=== PATIENT | male | born 1940 | race Caucasian/White ===

== ENCOUNTER → 2024-01-08 10:05 | Outpatient (REF) | payer OTHER, SELFPAY | LOC: RAD 10:05 | PROVIDERS: ATTENDING PHYSICIAN Family Medicine | DX: M15.9 Polyosteoarthritis, unspecified (principal) | CPT/HCPCS: 72110 ==

== ENCOUNTER 2024-02-27 14:38 | Inpatient (IN) | payer OTHER, SELFPAY ==
[2024-02-27] VITALS (11 sets, daily range): BP systolic 122–178; BP diastolic 38–93; BMI 26.9; BMI 27.2
[2024-02-27 09:26] LABS: Glucose - Point of Care 151 mg/dl (70-99)
--- NOTE | 2024-02-27 09:40 | ED.GENMED ---
History of Present Illness
<Chano Aj PA-C - Last Filed: 02/27/24 13:55>
General
Chief Complaint: Weakness
Source: patient
Exam Limitations: none
Time Seen by Provider: 02/27/24 09:20
Travel History
Have you had any contact with someone who has COVID-19?: No
Do you have any symptoms of coronavirus? Fever > 100 degrees, chills, cough, shortness of breath, sore throat, loss of taste or smell, muscle aches, or headache?: No
History of Present Illness
History of Present Illness:
84-year-old male presents via EMS from home with generalized weakness. He has been coughing over the past 2 to 3 days. He denies measurable fever. He states he felt very hot today. Upon EMS arrival he was found to be diaphoretic and bradycardic.
They gave 1 mg of atropine. Patient denies abdominal pain chest pain or shortness of breath. No known sick contacts. History of hypertension. No other complaints at this time
Past History
<Chano Aj PA-C - Last Filed: 02/27/24 13:55>
Past History
ED Past Medical History: HTN
ED Past Surgical History: Other (Hernia repair)
Social History
Tobacco: Non-smoker
Alcohol: None
Drug: None
Phy Exam
<Chano Aj PA-C - Last Filed: 02/27/24 13:55>
Physical Exam
Physical Exam:
General: Well-appearing male no acute respiratory distress
HEENT: Normocephalic atraumatic mucosa dry neck is supple
Heart: Regular rate and rhythm no murmurs
Lungs: Clear no wheeze or rales
Abdomen is soft nontender nondistended no guarding or rebound normal bowel sounds
Extremities: No cyanosis or edema
Skin: Warm no rash
Course
<Chano Aj PA-C - Last Filed: 02/27/24 13:55>
Orders/Labs/Results
Orders:
Orders
02/27/24 09:18
EKG [Electrocardiogram (*1)] Urgent
Reason for Study: Bradycardia / Tachycardia
EKG- Treatment ONCE
02/27/24 09:36
0.9% Sodium Chloride 1000 ml [Nss] 1,000 ml IV BOLUS
02/27/24 09:37
CR Chest - 2 Views Urgent
Comment:
Reason For Exam: cough, weakness
02/27/24 09:44
COVID-19 Antigen Urgent
Source: Nasal Swab
Complete Blood Count/With Diff Urgent
Comprehensive Metabolic Panel Urgent
Lactic Acid Q4H
Comment: CANCEL 2nd LACTIC ACID IF 1st LACTIC ACID IS LESS THAN 2
Lipase Urgent
Comment: ADD ON
TSH Reflex To Free T4 Urgent
Comment: ADD ON
Influenza A+B Rapid Molecular Urgent
BERENICE Source: Nasal Swab
Specimen Description:
02/27/24 09:55
Blood Culture Q30M
BERENICE Source: Blood/Venous
Specimen Description:
02/27/24 10:09
Blood Culture Q30M
BERENICE Source: Blood/Venous
Specimen Description:
02/27/24 11:12
Add On- LAB Urgent
Tests Added?: tsh, reflex to free t4
02/27/24 11:25
CT Abd/pelvis W Iv Cont Urgent
Comment:
Reason For Exam: abdominal pain, vomiting
Ondansetron Injectable [Zofran] 4 mg IV NOW STA
02/27/24 11:42
Electrocardiogram (*1) Urgent
Reason for Study: Other
Other Reason for Exam: physician order
EKG- Treatment ONCE
02/27/24 11:43
Add On- LAB Urgent
Tests Added?: lipase
02/27/24 11:46
Urinalysis Reflex To Culture Urgent
Date Specimen was Collected: 02/27/24
Time Specimen was Collected: 09:50
02/27/24 13:18
Echo 2D MMode Color/Doppler Routine
Reason for Study: bradycardia
02/27/24 13:45
Lactic Acid Q4H
Comment: CANCEL 2nd LACTIC ACID IF 1st LACTIC ACID IS LESS THAN 2
02/27/24 13:46
Tucker Placement- Treatment ONCE
Reason for insertion: Acute Retention
Abnormal Lab Results
02/27/24 02/27/24
09: 09:44
RBC 3.62 L 10^6/uL
(4.70-6.10)
Hgb 11.6 L g/dL
(13.0-18.0)
Hct 33.2 L %
(39.0-52.0)
MCH 32.0 H pg
(27.0-31.0)
RDW 23.3 H %
(11.5-14.5)
MPV 11.8 H fL
(7.4-10.4)
Abs Immat Gran (auto) 0.1 H 10^3/uL
(0-0.05)
Immature Gran % 1.4 H %
(0-0.5)
Glucose 147 H mg/dl
(70-99)
POC Glucose 151 H mg/dl
(70-99)
02/27/24 09:44
02/27/24 09:44
Vital Signs
Initial and Last Documented VS:
Initial Vital Signs
Pulse Resp BP Pulse Ox
59 16 143/57 92
02/27/24 09:15 02/27/24 09:15 02/27/24 09:15 02/27/24 09:15
Last Documented Vital Signs
Temp Pulse Resp BP Pulse Ox
95.6 F L 62 22 168/93 93
02/27/24 09:38 02/27/24 13:15 02/27/24 13:15 02/27/24 13:00 02/27/24 13:15
<Srikanth Antony MD - Last Filed: 02/27/24 13:44>
Orders/Labs/Results
Orders:
Orders
02/27/24 09:18
EKG [Electrocardiogram (*1)] Urgent
Reason for Study: Bradycardia / Tachycardia
EKG- Treatment ONCE
02/27/24 09:36
0.9% Sodium Chloride 1000 ml [Nss] 1,000 ml IV BOLUS
02/27/24 09:37
CR Chest - 2 Views Urgent
Comment:
Reason For Exam: cough, weakness
02/27/24 09:44
COVID-19 Antigen Urgent
Source: Nasal Swab
Complete Blood Count/With Diff Urgent
Comprehensive Metabolic Panel Urgent
Lactic Acid Q4H
Comment: CANCEL 2nd LACTIC ACID IF 1st LACTIC ACID IS LESS THAN 2
Lipase Urgent
Comment: ADD ON
TSH Reflex To Free T4 Urgent
Comment: ADD ON
Influenza A+B Rapid Molecular Urgent
BERENICE Source: Nasal Swab
Specimen Description:
02/27/24 09:55
Blood Culture Q30M
BERENICE Source: Blood/Venous
Specimen Description:
02/27/24 10:09
Blood Culture Q30M
BERENICE Source: Blood/Venous
Specimen Description:
02/27/24 11:12
Add On- LAB Urgent
Tests Added?: tsh, reflex to free t4
02/27/24 11:25
CT Abd/pelvis W Iv Cont Urgent
Comment:
Reason For Exam: abdominal pain, vomiting
Ondansetron Injectable [Zofran] 4 mg IV NOW STA
02/27/24 11:42
Electrocardiogram (*1) Urgent
Reason for Study: Other
Other Reason for Exam: physician order
EKG- Treatment ONCE
02/27/24 11:43
Add On- LAB Urgent
Tests Added?: lipase
02/27/24 11:46
Urinalysis Reflex To Culture Urgent
Date Specimen was Collected: 02/27/24
Time Specimen was Collected: 09:50
02/27/24 13:18
Echo 2D MMode Color/Doppler Routine
Reason for Study: bradycardia
02/27/24 13:45
Lactic Acid Q4H
Comment: CANCEL 2nd LACTIC ACID IF 1st LACTIC ACID IS LESS THAN 2
02/27/24 13:46
Tucker Placement- Treatment ONCE
Reason for insertion: Acute Retention
Abnormal Lab Results
02/27/24 02/27/24
09:44
RBC 3.62 L 10^6/uL
(4.70-6.10)
Hgb 11.6 L g/dL
(13.0-18.0)
Hct 33.2 L %
(39.0-52.0)
MCH 32.0 H pg
(27.0-31.0)
RDW 23.3 H %
(11.5-14.5)
MPV 11.8 H fL
(7.4-10.4)
Abs Immat Gran (auto) 0.1 H 10^3/uL
(0-0.05)
Immature Gran % 1.4 H %
(0-0.5)
Glucose 147 H mg/dl
(70-99)
POC Glucose 151 H mg/dl
(70-99)
02/27/24 09:44
02/27/24 09:44
Vital Signs
Initial and Last Documented VS:
Initial Vital Signs
Pulse Resp BP Pulse Ox
59 16 143/57 92
02/27/24 09:15 02/27/24 09:15 02/27/24 09:15 02/27/24 09:15
Last Documented Vital Signs
Temp Pulse Resp BP Pulse Ox
95.6 F L 62 22 168/93 93
02/27/24 09:38 02/27/24 13:15 02/27/24 13:15 02/27/24 13:00 02/27/24 13:15
<Chano Aj PA-C - Last Filed: 02/27/24 13:55>
MDM/Problems Addressed
Differential Diagnosis Includes:
Weakness. Not bradycardic upon arrival here. Looks dry on exam. Rectal temp 95.7. Septic workup initiated with cultures of the blood and urine chest x-ray COVID flu lactic acid. Fluids ordered.
<Chano Aj PA-C - Last Filed: 02/27/24 13:55>
*Critical Care Note
Total Time (30-74mins, 75-104mins- exclusive of procedures): Not Applicable
<Chano Aj PA-C - Last Filed: 02/27/24 13:55>
Update Note
Update Note:
Reevaluated multiple times now with increased abdominal pain. Patient's abdomen is somewhat distended. He is tender to the touch. He was vomiting upon my reassessment. Will give Zofran for nausea and CT of the abdomen. CT was reviewed and
demonstrates distended bladder but no other acute pathology. No sign of bowel obstruction. Patient was bradycardic earlier with diaphoresis and hypothermic now requiring urinary catheter secondary to urinary retention, will keep in hospital with
cultures pending.
ED Attending Note
<Chano Aj PA-C - Last Filed: 02/27/24 13:55>
-
Portions of this chart may have been created with voice recognition software.� Occasional wrong word or��sound alike� substitutions may have occurred due to the inherent limitations of voice recognition software.
<Srikanth Antony MD - Last Filed: 02/27/24 13:44>
ED Attending Note
Patient seen and examined by attending physician: Yes
I performed the substantive portion of visit, reviewed & personally made and approve the management plan that is documented in note by myself or LOYD.: Yes
ED Attending Note:
84-year-old male with mild URI-like symptoms over the last week. However this morning severe diaphoresis nausea lightheadedness. Has currently developed abdominal pain. Abdominal pain did not start till the ER. No chest pain or unusual shortness
of breath. Patient was given atropine prehospital for bradycardia/hypotension
History of hypertension hypercholesterolemia small bowel obstruction appendectomy hernia repair as a child.
On exam patient is nontoxic. Currently holding a vomit bag. Alert and oriented. Minimally pale. Warm and dry. Blood pressure actually mildly elevated. Heart rate normal.
Lungs clear and equal. Heart regular rate and rhythm no murmur. Abdomen distended soft diffuse tenderness mostly in the lower quadrants. Small periumbilical hernia easily reducible. Old scar right lower quadrant.
Warm and dry perfusing well. Good distal pulses and color. No pulsatile mass noted.
Impression severe bradycardia requiring atropine now with abdominal pain and nausea. We will repeat his EKG I question a heart block although blood pressure is stable. CT scan of the abdomen for abdominal pain. Warrants admission.
Patient seen by cardiology. Appears to be in normal sinus rhythm with junctional component. Abdominal CT is negative except for bladder distention. This may be the cause of his pain. Will need a Tucker catheter.
Discharge Plan
Departure
Patient Disposition: Home (Routine Discharge)
Date of Disposition: 02/27/24
Time of Disposition: 13:54
Admit to: Telemetry
Patient with high blood pressure during this ER visit?: No
Discharge Problem:
Hypothermia, Bradycardia, Acute urinary retention
Prescriptions:
No Action
multivitamin Tablet
1 tab PO DAILY
lecithin 518 mg Capsule
518 mg PO DAILY Qty: 0
Hold Instructions: Resume on 10/02/22.
doxazosin 4 mg Tablet
4 mg PO HS
finasteride 5 mg Tablet
5 mg PO DAILY
glucosamine-chondroitin [Osteo Bi-Flex] 250-200 mg Tablet
1 tab PO DAILY Qty: 0
Hold Instructions: Resume on 10/02/22.
magnesium oxide 400 mg magnesium Capsule
400 mg PO DAILY Qty: 0
Nerve Renew
1 tab PO BID
famotidine [Pepcid] 20 mg tablet
20 mg PO HS Qty: 14 0RF
amlodipine 5 mg Tablet
5 mg PO HS Qty: 1 0RF
lisinopril 10 mg Tablet
10 mg PO DAILY Qty: 1 0RF
acetaminophen [Tylenol] 325 mg Tablet
325 mg PO DAILY
naproxen sodium [Aleve] 220 mg Tablet
220 mg PO BIDPRN PRN (Reason: back pains)
Referrals:
Phoenix Chang MD [Family Provider] -
Interventions
Interventions:
*Risk Screen - Suicide Last Done: 02/27/24 09:15
*General Assessment Last Done: 02/27/24 09:15
*Neglect/Abuse Screening Last Done: 02/27/24 09:15
ED- Fall Risk Assessment Last Done: 02/27/24 09:34
*ED COVID-19 Vaccine History Last Done: 02/27/24 09:27
ED- Cardiac Assessment Last Done: 02/27/24 10:50
ED- Pulmonary Assessment Last Done: 02/27/24 10:50
Discharge Date and Time
Print Language: GERMAN
[2024-02-27 09:56] LABS: % Basophils 0.6 % (0-2); % Eosinophils 1.4 % (0-6); % Immature Granulocytes 1.4 % (0-0.5); % Lymphocytes 22.4 % (20.5-51.1); % Monocytes 9.1 % (1.7-9.3); % Neutrophils 65.1 % (42.2-75.2); Absolute Eosinophils 0.1 10^3/uL (0-0.7); Absolute Immature Granulocytes 0.1 10^3/uL (0-0.05); Absolute Lymphocytes 1.6 10^3/uL (1.2-3.4); Absolute Monocytes 0.6 10^3/uL (0.1-0.6); Absolute Neutrophils 4.6 10^3/uL (1.4-6.5); Hematocrit 33.2 % (39.0-52.0); Hemoglobin 11.6 g/dL (13.0-18.0); Mean Corp Hgb Conc. 34.9 g/dL (33.0-37.0); Mean Corpuscular Volume 91.7 fL (80.0-94.0); Mean Platelet Volume 11.8 fL (7.4-10.4); Nucleated Red Blood Cells % 0 % (-); Platelet Count 162 10^3/uL (130-400); Red Blood Cell Count 3.62 10^6/uL (4.70-6.10); Red Cell Dist. Width 23.3 % (11.5-14.5)
[2024-02-27] MEDS: NSS 1000 IV (09:59)
[2024-02-27 10:10] LABS: COVID-19 Antigen Negative (Negative); Lactic Acid 1.2 mmol/L (0.7-2.0)
[2024-02-27 10:12] LABS: ALT (SGPT) 38 U/L (0-50); AST (SGOT) 39 U/L (17-59); Albumin 4.4 g/dl (3.5-5.0); Alkaline Phosphatase 76 U/L (38-126); Blood Urea Nitrogen 18 mg/dl (9-20); Calcium 8.8 mg/dl (8.4-10.2); Carbon Dioxide 24 mmol/L (22-30); Chloride 105 mmol/L (98-107); Estimated Creatinine Clearance 74 ml/min; Glucose 147 mg/dl (70-99); Potassium 3.9 mmol/L (3.5-5.1); Sodium 136 mmol/L (135-145); Total Bilirubin 1.2 mg/dl (0.2-1.3); Total Protein 7.1 g/dl (6.3-8.2); eGFR > 60.00
[2024-02-27 10:49] LABS: Anisocytosis 1+; Normal RBC Morphology No; Target Cells Slight
[2024-02-27] MEDS: ZOFRAN 4 MG IV (11:41)
[2024-02-27 12:07] LABS: Urine Albumin Negative (Neg - Trace); Urine Bilirubin Negative (Negative); Urine Character Clear (Clear); Urine Color Yellow; Urine Glucose Negative (Negative); Urine Ketone Negative (Negative); Urine Leukocyte Negative (Negative); Urine Nitrite Negative (Negative); Urine Occult Blood Negative (Negative); Urine Specific Gravity 1.015 (<1.030); Urine Urobilinogen Negative (Neg - 1+)
--- NOTE | 2024-02-27 12:07 | CON.CAR ---
Addendum entered and electronically signed by Ge Nieves MD 02/27/24 16:33:
I saw and examined the patient.
The TECHNOLOGY ARCHITECT's note was reviewed and I agree with the note.
Comment: 84M with bradycardia. EKG shows SR with competing junctional. He has had diaphoresis and abdominal pain
- tele
- echo
- HR seems a reaction to his symptoms and not cause, but time, tele, and echo will be helpful
Original Note:
Consultation
Consultation Request
Date/Time Consultation Requested: 02/27/24 1204
Date/Time Consultation Performed: 02/27/24 1220
Requesting Provider: Dr. Antony
Performing Provider: Marielena CEBALLOS for Dr. Nieves
Reason for Consultation: abnormal EKG, bradycardia
Medical History
-
Chief Complaint: weakness
History of Present Illness:
84 y/o male with hypertension, peripheral neuropathy, chronic back pain, and BPH who is here for evaluation of waking up this AM around 7AM feeling hot and sweaty and with dizziness and weakness. He got up to go to the bathroom, then went back into
bed since it did not get better. Lasted about 1/2 hour. EMS reported that his HR was 46 with BP elevated at that time in 170's. He was given 1 mg atropine for suspected symptomatic bradycardia. He was also given IV fluids. I reviewed available
strips and I see HR as low as 50 BPM, but no severe bradycardia. EKG reveals sinus rhythm with competing junctional rhythm. He has developed abdominal pain, nausea, and vomiting as well and abdominal CT is pending. Blood cultures are pending.
Past Medical History
Past Medical History: HTN and Other (peripheral neuropathy, chronic back pain, BPH)
Social History
Tobacco: Non-Smoker
Alcohol: Occasional
Family History
Family History: Reviewed & Not Pertinent
Allergies / Home Medications
Allergy/AdvReac Type Severity Reaction Status Date / Time
No Known Allergies Allergy Verified 02/27/24 09:19
�Medication �Instructions �Recorded �Confirmed �Type
Nerve Renew 1 tab PO BID 08/15/22 02/27/24 History
doxazosin 4 mg tablet 4 mg PO HS 08/15/22 02/27/24 History
finasteride 5 mg tablet 5 mg PO DAILY 08/15/22 02/27/24 History
glucosamine-chondroitin 250 mg-200 1 tab PO DAILY ##0 08/15/22 02/27/24 History
mg tablet (Osteo Bi-Flex)
lecithin 518 mg capsule 518 mg PO DAILY ##0 08/15/22 02/27/24 History
magnesium oxide 400 mg PO DAILY ##0 08/15/22 02/27/24 History
multivitamin 1 tab PO DAILY 08/15/22 02/27/24 History
famotidine 20 mg tablet (Pepcid) 20 mg PO HS #14 tabs 08/16/22 02/27/24 Rx
amlodipine 5 mg tablet 5 mg PO HS #1 tab 09/25/22 02/27/24 Rx
lisinopril 10 mg tablet 10 mg PO DAILY #1 tab 09/25/22 02/27/24 Rx
acetaminophen 325 mg tablet 325 mg PO DAILY 02/27/24 02/27/24 History
(Tylenol)
naproxen sodium 220 mg tablet 220 mg PO BIDPRN PRN back pains 02/27/24 02/27/24 History
(Aleve)
Review of Systems
-
History Source: Patient
All other systems: Negative unless noted
Constitutional: Other (weakness)
Cardiac: Diaphoresis
Abdomen/GI: Abdominal Pain, Nausea and Vomiting
Neurological: Dizzy
Physical Exam
Vital Signs
Temp Pulse Resp BP Pulse Ox
95.6 F L 62 17 178/88 90
02/27/24 09:38 02/27/24 11:45 02/27/24 11:45 02/27/24 11:39 02/27/24 11:45
Lab Results
02/27/24 09:44
02/27/24 09:44
Physical Exam
General: Well Developed and No Apparent Distress
HEENT: Normocephalic and Anicteric
Respiratory: Clear and Non Labored Respirations
Cardiac: Regular Rhythm
GI: Tender and Distended
Musculoskeletal: No Edema
Skin: Warm and Dry
Neuro: AO x 3
Psych: Calm
Impression / Plan
-
Weakness, diaphoresis, dizziness:
-resolved
-fluids given
-blood cultures pending
-follow telemetry
-check echo
Bradycardia, abnormal EKG:
-SR with competing junctional rhythm noted by EKG and telemetry
-not on any AV-tay agents- avoid
-TSH pending
-may be related to abdominal issues- awaiting work-up
-echo
Abdominal symptoms:
-pain, nausea
-CT scan is pending
HTN:
-elevated in ED
-on CCB and ACEI- monitor
Data Reviewed
-
EKG: Tracing Personally Visualized and interpreted (sinus rhythm with competing junctional rhythm )
Radiology: Report Reviewed by me (CXR: No active cardiopulmonary disease.)
Medical Tests (Nuc Med, Echo etc): Report Reviewed by me (echo 06/11/23: LV ejection fraction is 60-65%.Mild aortic regurgitation. Mild tricuspid regurgitation.)
Labs: Labs Reviewed by me
[2024-02-27 12:34] LABS: TSH Reflex To Free T4 1.61 uIU/ml (0.47-4.68)
[2024-02-27 12:42] LABS: Lipase 87 U/L (23-300)
--- NOTE | 2024-02-27 13:55 | HPS.HSE ---
Family Physician
-
Family Physician: Phoenix Chang
Chief Complaint
-
generalized weakness
dizzy
History of Present Illness
84 y/o male with hypertension, peripheral neuropathy, chronic back pain, and BPH woke up sweaty, hot,dizzy and weak. he voided little bit but went back to bed as he felt very weak and dizzy. reported, he was having cough, congestion for past
one week. checked his temperature and it was normal. she called 911. EMS reported that his HR was 46 with BP elevated at that time in 170's. He was given 1 mg atropine for suspected symptomatic bradycardia. He was also given IV fluids. patient
was noted to have abdominal pain in ER. he noted distended abdominal pain. denied dysuria or hematuria. denied fever, chills, chest pain, sob.denied ZABALA. denied n/v/d.
Medical History
Past Medical History
Past Medical History: Reports Other
Additional Past Medical History:
1. Osteoarthritis.
2. Hypertension.
3. Hypercholesterolemia.
4. PACs, asymptomatic.
5. Chronic dyspnea on exertion.
6. Documented chronic kidney disease stage 3.
7. Small bowel obstruction 10/2016.
8. Nephrolithiasis.
9. Fatty liver disease.
10. Spinal stenosis.
11. Peripheral polyneuropathy.
12. BPH.
13. Basal cell carcinoma, status post excision.
14. Anemia of chronic disease.
15. Right cataract with vision loss.
16. Anxiety.
Past Surgical History: Reports Other
Additional Past Surgical History:
1. Right wrist fracture repair.
2. Bilateral carpal tunnel release.
3. Left inguinal hernia repair x2.
4. Right inguinal hernia repair.
5. Appendectomy.
6. Tonsillectomy and adenoidectomy.
7. Left cataract extraction.
8. Multiple colonoscopies.
9. Prostatic biopsy x3.
Social History
Tobacco: Non-smoker
Alcohol: None
Drug: None
Personal:
Living: With Family
Family History
Family History: Not pertinent
Allergies / Home Medications
Allergies reflects when Allergies were last updated in [facility].
Home Medications with original date entered in [facility]
Allergy/Medication List:
Allergies
Allergy/AdvReac Type Severity Reaction Status Date / Time
No Known Allergies Allergy Verified 02/27/24 09:19
Home Medications
Nerve Renew 1 tab PO BID 08/15/22
doxazosin 4 mg tablet 4 mg PO HS 08/15/22
finasteride 5 mg tablet 5 mg PO DAILY 08/15/22
glucosamine-chondroitin 250 mg-200 mg tablet (Osteo Bi-Flex) 1 tab PO DAILY ##0 08/15/22
lecithin 518 mg capsule 518 mg PO DAILY ##0 08/15/22
magnesium oxide 400 mg PO DAILY ##0 08/15/22
multivitamin 1 tab PO DAILY 08/15/22
famotidine 20 mg tablet (Pepcid) 20 mg PO HS #14 tabs 08/16/22
amlodipine 5 mg tablet 5 mg PO HS #1 tab 09/25/22
lisinopril 10 mg tablet 10 mg PO DAILY #1 tab 09/25/22
acetaminophen 325 mg tablet (Tylenol) 325 mg PO DAILY 02/27/24
naproxen sodium 220 mg tablet (Aleve) 220 mg PO BIDPRN PRN back pains 02/27/24
Review of Systems
-
Constitutional: Reports Fatigue
EENT: Reports No Symptoms
Respiratory: Reports Cough
Cardiac: Reports No Symptoms
Abdomen/GI: Reports No Symptoms and Abdominal Pain
: Reports No Symptoms
Musculoskeletal: Reports No Symptoms
Skin: Reports No Symptoms
Neurological: Reports No Symptoms
Endocrine: Reports No Symptoms
Hematologic/Lymphatic: Reports No Symptoms
Psych: Reports No Symptoms
Physical Exam
Vital Signs
Vital Signs
Temp Pulse Resp BP Pulse Ox
95.6 F L 62 22 168/93 93
02/27/24 09:38 02/27/24 13:15 02/27/24 13:15 02/27/24 13:00 02/27/24 13:15
Physical Exam
General: Well Developed, Well Nourished and No Apparent Distress
HEENT: NormoCephalic, Moist mucous membranes and Atraumatic
Respiratory: Clear
Cardiac: S1/S2 and Regular Rhythm; No Murmur or Rub
GI: Soft, Non Tender, Normal Bowel Sounds and Distended; No Organomegaly
Rectal: Deferred by Provider
Musculoskeletal: No Clubbing, No Cyanosis and No Edema
Skin: No Rash
Neuro: AO x 3 and Nonfocal/grossly intact
Psych: Calm
Laboratory Results
-
02/27/24 09:44
02/27/24 09:44
Laboratory Results
Lactic Acid 1.2 mmol/L (0.7-2.0) 02/27/24 09:44
Total Bilirubin 1.2 mg/dl (0.2-1.3) 02/27/24 09:44
AST 39 U/L (17-59) 02/27/24 09:44
ALT 38 U/L (0-50) 02/27/24 09:44
Alkaline Phosphatase 76 U/L (38-126) 02/27/24 09:44
Lipase 87 U/L (23-300) 02/27/24 09:44
Data Reviewed
-
Diagnostic Radiology: Report Reviewed by me
CT Scan: Report Reviewed by me
Lab Data: Labs Reviewed by me
Impression/Plan
-
# # Weakness/hypothermic unclear cause
-Temperature 95.7
-CT with here is no evidence of acute pathology in the abdomen or pelvis.There is 3 cm umbilical hernia which contains a knuckle of small bowel without associated obstruction or strangulation.Prostatomegaly.Left inguinal hernia repair.Multilevel
degenerative disc disease.Hepatic and left renal cysts.Atherosclerosis.Imaging for bowel pathology is limited by the lack of enteric contrast. If there is clinical suspicion for bowel pathology, the study be repeated with enteric contra
-Tucker placed by ER
-Chest x-ray clear
-Blood cultures pending
-UA negative
-COVID-negative, flu negative
-pt/ot consult
-Colette joseer ordered
# Cough/congestion likely viral
-COVID-negative
-Flu negative
-Chest x-ray clear
-Will obtain RSV
-Continue to monitor
# Bladder distention/history of BPH
-Cardura and finasteride continued
-Tucker ordered in ER
# Bradycardia unclear cause likely from abdominal pain
-Improved after atropine
-EKG with sinus rhythm with competing junctional rhythm
-TSH pending
-Echo
-TREND TROP
-Cardiology following
# Anemia likely chronic
-Hemoglobin 11.6
-No active bleeding
-Continue to monitor
# Hypertension
-Blood pressure elevated in ER
-Norvasc and lisinopril continued
# GERD
-Pepcid continued
# DVT prophylaxis
-Lovenox subcu
# CODE STATUS
-Full code
[2024-02-27 18:30] LABS: Troponin I < 0.012 ng/ml
[2024-02-27] MEDS: LOVENOX 40 MG SC (19:41)
--- NOTE | 2024-02-27 20:20 | W.PN.UPDATE ---
Update Note
Progress Note Update
This note serves as an addendum to the H&P by LIN Reich on February 27, 2024.
84 y/o male with past medical history of hypertension, peripheral neuropathy, chronic back pain, and BPH woke up sweaty, hot, dizzy and weak. Patient's , who was in patient's room at the time of admission, reported that patient was having cough
and congestion for the past one week. EMS reported that his heart rate was 46 beats per minute with blood pressure elevated at that time with systolic blood pressure in the 170s mmHg. He was given 1 mg atropine for suspected symptomatic bradycardia.
He was also given IV fluids. patient was noted to have abdominal pain in ER, later after imaging thought to be from urinary retention.
Vital signs noted with hypothermia down to 95.6 F. HR and remaining vital signs okay.
Physical Exam
General: Not in acute distress.
HEENT: Normocephalic, Moist mucous membranes and Atraumatic
Respiratory: Clear
Cardiac: S1/S2 and Regular Rhythm; No Murmur or Rub
GI: Soft, Non Tender, Normal Bowel Sounds and Distended
Musculoskeletal: No Cyanosis and No Edema
Skin: Warm. Dry.
Neuro: AAO x 3 and Nonfocal/grossly intact
Psych: Calm
Assessment/Plan
#Weakness, diaphoresis, dizziness
#Hypothermia
-Temperature 95.7
-Tucker placed by ER
-Chest x-ray clear
-Blood cultures pending
-UA negative
-Check CT Head
-Check TSH, AM cortisol
-Dietary consult
-COVID-negative, flu negative
-pt/ot consult
-Colette delbert ordered
# Bradycardia unclear cause likely from abdominal pain
-Could be related to hypothermia
-Improved after atropine
-EKG with sinus rhythm with competing junctional rhythm
-TSH pending
-Echo
-TREND TROP
-Cardiology following, recommendations appreciated
# Cough/congestion likely viral
-COVID-negative
-Flu negative
-Chest x-ray clear
-Will obtain RSV
-Continue to monitor
# Bladder distention/history of BPH
-Cardura and finasteride continued
-Tucker ordered in ER
-Will consult urology based on the CT imaging findings
# Anemia likely chronic
-Hemoglobin 11.6
-No active bleeding
-Continue to monitor
# Hypertension
-Blood pressure elevated in ER
-Norvasc and lisinopril continued
# GERD
-Pepcid continued
1. Osteoarthritis.
2. Hypertension.
3. Hypercholesterolemia.
4. PACs, asymptomatic.
5. Chronic dyspnea on exertion.
6. Documented chronic kidney disease stage 3.
7. Small bowel obstruction 10/2016.
8. Nephrolithiasis.
9. Fatty liver disease.
10. Spinal stenosis.
11. Peripheral polyneuropathy.
12. BPH.
13. Basal cell carcinoma, status post excision.
14. Anemia of chronic disease.
15. Right cataract with vision loss.
16. Anxiety.
Past Surgical History:
1. Right wrist fracture repair.
2. Bilateral carpal tunnel release.
3. Left inguinal hernia repair x2.
4. Right inguinal hernia repair.
5. Appendectomy.
6. Tonsillectomy and adenoidectomy.
7. Left cataract extraction.
8. Multiple colonoscopies.
9. Prostatic biopsy x3.
# DVT prophylaxis
-Lovenox subcu
# CODE STATUS
-Full code
[2024-02-27] MEDS: NORVASC 5 MG PO (21:09)
[2024-02-27] MEDS: CARDURA 4 MG PO (21:19)
[2024-02-27] MEDS: PEPCID 20 MG PO (21:19)
[2024-02-28] VITALS (9 sets, daily range): BP systolic 107–179; BP diastolic 41–74; PULSE 62; O2SAT 96
[2024-02-28 07:45] LABS: Hematocrit 34.7 % (39.0-52.0); Hemoglobin 12.3 g/dL (13.0-18.0); Mean Corp Hgb Conc. 35.4 g/dL (33.0-37.0); Mean Corpuscular Hgb 31.9 pg (27.0-31.0); Mean Corpuscular Volume 90.1 fL (80.0-94.0); Mean Platelet Volume 12.2 fL (7.4-10.4); Platelet Count 182 10^3/uL (130-400); Red Blood Cell Count 3.85 10^6/uL (4.70-6.10); Red Cell Dist. Width 23.4 % (11.5-14.5); White Blood Cell Count 9.8 10^3/uL (4.8-10.8)
[2024-02-28 08:05] LABS: Troponin I 0.033 ng/ml
[2024-02-28 08:30] LABS: Blood Urea Nitrogen 15 mg/dl (9-20); Carbon Dioxide 23 mmol/L (22-30); Chloride 104 mmol/L (98-107); Estimated Creatinine Clearance 74 ml/min; Glucose 102 mg/dl (70-99); Sodium 135 mmol/L (135-145); eGFR > 60.00
[2024-02-28 08:42] LABS: Cortisol, Random 42.1 ug/dl
[2024-02-28] MEDS: MAG-TAB SR 84 MG PO (09:15)
[2024-02-28] MEDS: ZESTRIL 10 MG PO (09:15)
[2024-02-28] MEDS: PROSCAR 5 MG PO (09:15)
[2024-02-28] MEDS: TYLENOL 325 MG PO (09:15)
--- NOTE | 2024-02-28 09:54 | PTOTSP ---
SPEECH THERAPY SWALLOW EVALUATION:
Patient presents with grossly functional oropharyngeal swallow. No signs or symptoms of aspiration noted at this time. CXR is clear, WBC WNL. Head CT demonstrating no acute abnormality. Recommend continue Regular texture diet, thin liquids.
Medications whole with liquid as tolerated. General aspiration precautions including upright positioning and slow rate of intake. Swallow therapy is not indicated at this time. Informal assessment of speech/language/cognitive communication skills
appeared grossly WFL at this time. ST to follow-up for comprehensive Speech/language/cognitive communication evaluation pending MRI results if warranted. Otherwise, no further ST services are indicated at this time.
RECOMMEND:
1) Regular texture diet, thin liquids
2) Medications whole with liquid as tolerated
3) ST to follow-up for comprehensive Speech/language/cognitive communication evaluation pending MRI results if warranted
--- NOTE | 2024-02-28 10:19 | W.PN.CD ---
Today's Communication / Plan
-
Tele fine
Will arrange 2 week monitor and 1 followup visit with us
Please call back with questions
Impression / Plan
-
Weakness, diaphoresis, dizziness with abdominal symptoms
- Does not seem to be of cardiac etiology
- Echo OK
- Tele OK, no significant bradycardia, few 3-4 beats AT, few PVCs
- Trop only 0.033
Bradycardia
- Not that severe per report
- No recurrence
- presumably vagally mediated precipitated by the underlying process (not clear what that process is/was
LVH on echo (old)
- Presumably based on HTN
Mild MR/mod TR
- No heart failure symptoms
HTN
Subjective:
No CP
Physical Exam
Vital Signs/Labs
Vital Signs
Temp Pulse Resp BP Pulse Ox
97.6 F 58 20 149/54 95
02/28/24 07:30 02/28/24 07:30 02/28/24 07:30 02/28/24 07:30 02/28/24 07:30
02/27/24 02/28/24 02/29/24
06:59 06:59 06:59
Actual Weight 85.899 kg
02/28/24 07:10
02/28/24 07:10
LAB Results
02/27/24 02/28/24 02/28/24
17:49 00:28 07:10
Troponin I < 0.012 0.020 D 0.033 D
Physical Exam
Constitutional: No acute distress
Cardiovascular: Rhythm & rate is regular and Pedal edema is absent
Respiratory: Respiratory effort normal, Lungs clear to auscul. and Wheeze Absent
GI: Soft and Distention absent
Neuro/Psych: AO x 3
Data Reviewed
-
Date of Service: February 28, 2024
[2024-02-28 13:47] LABS: Troponin I 0.034 ng/ml
--- NOTE | 2024-02-28 14:50 | CM ---
fleet dispatch manager reviewed patient's chart and met with patient and patient lives alone in a split level home, patient was independent with adl's and ambulation, no dme, patient drives, patient has a prescription plan and patient uses [facility] pharmacy.
PCP: Dr. Chang
Plan; Per physical therapy recommendation is for skilled placement options reviewed with patient and patient has selected [facility] and [facility], referrals sent to both facilities.
[2024-02-28] MEDS: LOVENOX 40 MG SC (17:58)
--- NOTE | 2024-02-28 20:25 | W.PN.HOSP.TC ---
Today's Communication/Plan
-
Doing much, much better -- less confusion/lethargy, able to do conversation, sitting up, etc.
Case management working on rehab placement as of February 28, 2024
Assessment / Plan
Assessment / Plan
Physical Exam
General: Not in acute distress.
HEENT: Normocephalic, Moist mucous membranes and Atraumatic
Respiratory: Clear
Cardiac: S1/S2 and Regular Rhythm
GI: Soft, Non Tender, Normal Bowel Sounds and Distended
Musculoskeletal: No Cyanosis and No Edema
Skin: Warm. Dry.
Neuro: AAO x 3 and Nonfocal/grossly intact
Psych: Calm

Echocardiogram results (as per web content & social media manager's report)
CONCLUSIONS
Normal left ventricular size and systolic function. LV ejection fraction is 56%
by volumetric assessment.
Moderate concentric left ventricular hypertrophy.
Mild mitral regurgitation.
Moderate tricuspid regurgitation. Estimated pulmonary artery pressure of 45-50
mmHg.
Compared to prior study of May 2023, TR and PASP are slightly higher.

Assessment/Plan
#Weakness, diaphoresis, dizziness - MOSTLY RESOLVED
#Lethargy
#Hypothermia - RESOLVED
-Weakness, diaphoresis and dizziness not of a cardiac etiology
-Temperature 95.7 -- now resolved and not needing Colette Hugger
-Tucker placed by ER
-Chest x-ray clear
-Blood cultures pending
-UA negative
-CT Head with findings suggesting encephalomalacia/old stroke
-TSH 1.61
-AM cortisol 42.1
-COVID-negative, flu negative
-pt/ot consult
# Bradycardia unclear cause - RESOLVED - perhaps vagally mediated due to an unclear process
-Could be related to hypothermia
-Improved after atropine
-EKG with sinus rhythm with competing junctional rhythm
-Echo results as above
-Troponins negative
-Cardiology following, recommendations appreciated
# Cough/congestion likely viral bronchitis - IMPROVED
-COVID-negative
-Flu negative
-Chest x-ray clear
-RSV negative
-Supportive care
-Continue to monitor
# Bladder distention/history of BPH
-Cardura and finasteride continued
-Tucker ordered in ER
-Discharge with Tucker Catheter and follow-up with outpatient urology
#Umbilical Hernia on CT Imaging this admission
-No strangulation or obstruction
-Can follow-up with surgery outpatient for monitoring
# Anemia likely chronic
-Hemoglobin 11.6-->12.3
-No active bleeding
-Continue to monitor
# Hypertension
-Blood pressure elevated in ER
-Now stable/controlled
-Norvasc and lisinopril continued
# GERD
-Pepcid continued
1. Osteoarthritis.
2. Hypertension.
3. Hypercholesterolemia.
4. PACs, asymptomatic.
5. Chronic dyspnea on exertion.
6. Documented chronic kidney disease stage 3.
7. Small bowel obstruction 10/2016.
8. Nephrolithiasis.
9. Fatty liver disease.
10. Spinal stenosis.
11. Peripheral polyneuropathy.
12. BPH.
13. Basal cell carcinoma, status post excision.
14. Anemia of chronic disease.
15. Right cataract with vision loss.
16. Anxiety.
Past Surgical History:
1. Right wrist fracture repair.
2. Bilateral carpal tunnel release.
3. Left inguinal hernia repair x2.
4. Right inguinal hernia repair.
5. Appendectomy.
6. Tonsillectomy and adenoidectomy.
7. Left cataract extraction.
8. Multiple colonoscopies.
9. Prostatic biopsy x3.
# DVT prophylaxis
-Lovenox subcu
# CODE STATUS
-Full code
Anticipated Discharge: 24 - 48 hours
Subjective/Interval History
-
Date of Service: February 28, 2024
Patient was seen and examined. He looked much better, more awake, and almost all of his presenting symptoms have resolved.
Objective Data
-
Labs:
Laboratory Results
02/28/24
07:10
Sodium 135
Potassium 4.0
Chloride 104
Carbon Dioxide 23
BUN 15
Creatinine 0.8
Glucose 102 H
Calcium 10.0
Vital Signs:
Vital Signs
Temp Pulse Resp BP Pulse Ox
97.9 F 65 16 107/63 98
02/28/24 19:05 02/28/24 19:05 02/28/24 19:05 02/28/24 19:05 02/28/24 19:05
I&O
02/27/24 02/28/24 02/29/24
06:59 06:59 06:59
Intake Total 1240 / 1240 740 / 740
Output Total 3050 / 3050 1050 / 1050
Balance -1810 / -1810 -310 / -310
[2024-02-28] MEDS: CARDURA 4 MG PO (21:57)
[2024-02-28] MEDS: NORVASC 5 MG PO (21:58)
[2024-02-28] MEDS: PEPCID 20 MG PO (21:58)
[2024-02-29 03:10] VITALS: BP 134/59
[2024-02-29 07:00] LABS: Hematocrit 33.7 % (39.0-52.0); Mean Corp Hgb Conc. 35.6 g/dL (33.0-37.0); Mean Corpuscular Volume 89.9 fL (80.0-94.0); Mean Platelet Volume 11.3 fL (7.4-10.4); Platelet Count 171 10^3/uL (130-400); Red Blood Cell Count 3.75 10^6/uL (4.70-6.10); White Blood Cell Count 9.8 10^3/uL (4.8-10.8)
[2024-02-29 08:34] VITALS: BP 146/62
[2024-02-29 08:36] LABS: Blood Urea Nitrogen 19 mg/dl (9-20); Calcium 9.8 mg/dl (8.4-10.2); Carbon Dioxide 27 mmol/L (22-30); Chloride 101 mmol/L (98-107); Estimated Creatinine Clearance 65 ml/min; Glucose 88 mg/dl (70-99); Potassium 4.1 mmol/L (3.5-5.1); Sodium 137 mmol/L (135-145); eGFR > 60.00
[2024-02-29] MEDS: MAG-TAB SR 84 MG PO (09:50)
[2024-02-29] MEDS: ZESTRIL 10 MG PO (09:50)
[2024-02-29] MEDS: TYLENOL 325 MG PO (09:50)
[2024-02-29] MEDS: PROSCAR 5 MG PO (09:51)
--- NOTE | 2024-02-29 11:35 | W.PN.HOSP.TC ---
Addendum entered and electronically signed by Oleksandr Quintero MD 02/29/24 15:18:
Patient now stating he rather undergo voiding trial in the hospital. RN to remove catheter and will wait for voiding trial.
Original Note:
Today's Communication/Plan
-
repeat PT eval
OP heart monitor
monitor VSS
Assessment / Plan
Assessment / Plan
Physical Exam
General: Not in acute distress.
HEENT: Normocephalic, Moist mucous membranes and Atraumatic
Respiratory: Clear
Cardiac: S1/S2 and Regular Rhythm
GI: Soft, Non Tender, Normal Bowel Sounds and Distended
Musculoskeletal: No Cyanosis and No Edema
Skin: Warm. Dry.
Neuro: AAO x 3 and Nonfocal/grossly intact
Psych: Calm
Assessment/Plan
#Weakness, diaphoresis, dizziness - RESOLVED
#Lethargy
#Hypothermia - RESOLVED
-Weakness, diaphoresis and dizziness not of a cardiac etiology
-Temperature 95.7 -- now resolved and not needing Colette Hugger
-Tucker placed by ER
-Chest x-ray clear
-Blood cultures negative so far
-UA negative
-CT Head with findings suggesting encephalomalacia/old stroke
-TSH 1.61
-AM cortisol 42.1
-COVID-negative, flu negative
-pt/ot consult
# Bradycardia unclear cause - RESOLVED - perhaps vagally mediated due to an unclear process
-Could be related to hypothermia
-Improved after atropine
-EKG with sinus rhythm with competing junctional rhythm
-Echo results as above
-Troponins negative
-Cardiology following, recommendations appreciated. Plan for outpatient heart monitor.
# Cough/congestion likely viral bronchitis - IMPROVED
-COVID-negative
-Flu negative
-Chest x-ray clear
-RSV negative
-Supportive care
-Continue to monitor
# Bladder distention/history of BPH
-Cardura and finasteride continued
-Tucker ordered in ER
-Discharge with Tucker Catheter and patient stated he will follow-up with his primary outpatient urologist.
#Umbilical Hernia on CT Imaging this admission
-No strangulation or obstruction
-Can follow-up with surgery outpatient for monitoring
# Anemia likely chronic
-Hemoglobin stable
-No active bleeding
-Continue to monitor
# Hypertension
-Blood pressure elevated in ER
-Now stable/controlled
-Norvasc and lisinopril continued
# GERD
-Pepcid continued
# DVT prophylaxis
-Lovenox subcu
# CODE STATUS
-Full code
PT -await repeat eval. [facility] as of yesterday. Pt wants to try again and see if he can go home.
Anticipated Discharge: Within 24 hours
Subjective/Interval History
-
Date of Service: February 29, 2024
states feeling better
wants to walk around
Objective Data
-
Labs:
Laboratory Results
02/29/24
06:49
WBC 9.8
Hgb 12.0 L
Hct 33.7 L
Plt Count 171
Sodium 137
Potassium 4.1
Chloride 101
Carbon Dioxide 27
BUN 19
Creatinine 0.9
Glucose 88
Calcium 9.8
Vital Signs:
Vital Signs
Temp Pulse Resp BP Pulse Ox
97.4 F 67 18 146/62 96
02/29/24 08:34 02/29/24 08:34 02/29/24 08:34 02/29/24 08:34 02/29/24 08:34
I&O
02/28/24 02/29/24 03/01/24
06:59 06:59 06:59
Intake Total 1240 / 1240 1220 / 1220
Output Total 3050 / 3050 2875 / 2875 500 / 500
Balance -1810 / -1810 -1655 / -1655 -500 / -500
[2024-02-29 12:05] VITALS: BP 112/53
--- NOTE | 2024-02-29 14:41 | W.DCSUMMARY ---
Discharge Summary
Discharge Data
Date of Admission: 02/27/24
Date of Discharge: 02/29/24
-
Pending Results: No
Hospital Course
84-year-old male past medical history of BPH, umbilical hernia, anemia, hypertension who is presenting from home with weakness and diaphoresis. Patient was also found to have hypothermia status post Colette hugger. Infectious workup was found to be
negative. COVID influenza negative. Chest x-ray negative for infiltrates. RSV was negative. Patient was eval by cardiology. Patient was monitored on telemetry. No clear etiology of bradycardia. Patient bradycardia resolved. Patient was
ambulating. Echocardiogram was done which showed EF of 56%. Normal left ventricular size and function. Moderate concentric LVH. Mild mitral regurgitation and moderate tricuspid regurgitation. Estimated PASP 45�50. Patient upon admission
underwent CT abdomen pelvis which showed bladder distention and Tucker catheter was placed. Tucker catheter was removed and patient was able to void approximately 550 cc on bladder scan with post void approximately 144. Patient was recommended
follow-up with his primary urologist. Patient without any abdominal pain or difficulty. Patient was reeval by physical therapy and recommended okay to for home with walker. Prescription was provided. Patient will also undergo Holter monitor set
up by cardiology.
Discharge Plan
-
Patient Disposition: Home with Home Care
Discharge Diagnosis/Procedures: Weakness, diaphoresis or dizziness secondary to bradycardia
Hypokalemia
Acute urinary retention status post Tucker catheter placement
Condition: Fair
Diet: As tolerated
Activity: With assistance and As tolerated
Driving Restrictions: As prior to admission
Blood Work: Recommend repeat BMP in 1 week with primary doctor
Others Tests: An outpatient site monitor is being arranged for you by the cardiology office. They will contact you.
Activity Restrictions/Additional Instructions:
Follow-up with your primary urologist for Tucker catheter management and voiding trial.
Instructions: How to Care for Your Tucker Catheter, Male
Referrals:
Phoenix Chang MD [Family Provider] - in less than 1 week
Marielena Chris CRNP [Specified Professional Personl] - 03/27/24 9:20 am (Monitor should be completed and returned prior to appointment.)
Milton Neal MD [Active] - None (Follow-up for umbilical hernia management)
Prescriptions:
New
polyethylene glycol 3350 [HealthyLax] 17 gram Powder In Packet
17 g PO DAILYPRN PRN (Reason: constipation) 30 Days Qty: 30 0RF
sennosides-docusate sodium [Stool Softener-Stimulant Laxat] 8.6-50 mg Tablet
1 tab PO BID 30 Days Qty: 60 0RF
Continued
multivitamin Tablet
1 tab PO DAILY
lecithin 518 mg Capsule
518 mg PO DAILY Qty: 0
Hold Instructions: Resume on 10/02/22.
doxazosin 4 mg Tablet
4 mg PO HS
finasteride 5 mg Tablet
5 mg PO DAILY
glucosamine-chondroitin [Osteo Bi-Flex] 250-200 mg Tablet
1 tab PO DAILY Qty: 0
Hold Instructions: Resume on 10/02/22.
magnesium oxide 400 mg magnesium Capsule
400 mg PO DAILY Qty: 0
Nerve Renew
1 tab PO BID
famotidine [Pepcid] 20 mg tablet
20 mg PO HS Qty: 14 0RF
amlodipine 5 mg Tablet
5 mg PO HS Qty: 1 0RF
lisinopril 10 mg Tablet
10 mg PO DAILY Qty: 1 0RF
acetaminophen [Tylenol] 325 mg Tablet
325 mg PO DAILY
Discontinued
naproxen sodium [Aleve] 220 mg Tablet
220 mg PO BIDPRN PRN (Reason: back pains)
Discharge Orders:
Discharge Patient (As Directed); Ordered 02/29/24
Ordered By: Oleksandr Quintero
Discharge Date and Time
Discharge Date/Time: 02/29/24 17:23
Print Language: UZBEK
--- NOTE | 2024-02-29 14:42 | CM ---
Addendum entered by Jessica Alas 02/29/24 14:44:
[facility]
[place]
[phone]
fax [phone]
Original Note:
tire care manager reviewed patient's chart and spoke with physical therapy and patient has been cleared for discharge to home with visiting nurses today, [id number] has been issued a walker, script provided to PT, [facility] and referral sent to [facility].
Plan; [facility] with [facility].
[2024-02-29 14:45] VITALS: BP 97/61; PULSE 74; O2SAT 97
--- NOTE | 2024-02-29 15:30 | PTCARENOTE ---
Tucker catheter d/c'd at 1503, per MD direction. Voiding trial stated, patient due to void by 0. Will monitor.
[2024-02-29 16:04] VITALS: BP 169/75
--- NOTE | 2024-02-29 16:30 | PTCARENOTE ---
Patient voiding 550cc of clear yellow urine over 25 minutes. Post void bladder scan 144cc. Dr. Quintero notified.
--- NOTE | 2024-02-29 16:35 | PTCARENOTE ---
Patient states he received the pneumonia vaccine in 12/2023. Thus refuses PNA vaccine today
== END 2024-02-29 17:23 | disposition home health service (06) | DRG 310 ==
LOC: 4 WEST ACU 14:38
PROVIDERS: Physician Assistant; Registered Nurse; ADMITTING PHYSICIAN Hospitalist; ATTENDING PHYSICIAN Hospitalist; EMERGENCY PHYSICIAN Emergency Medicine; FAMILY PHYSICIAN Family Medicine; OTHER PHYSICIAN Internal Medicine Cardiovascular Disease
DX: R00.1 Bradycardia, unspecified (principal); J20.8 Acute bronchitis due to other specified organisms; E87.6 Hypokalemia; R53.1 Weakness; N18.30 Chronic kidney disease, stage 3 unspecified; I12.9 Hypertensive chronic kidney disease with stage 1 through stage 4 chronic kidney disease, or unspecified chronic kidney disease; E78.00 Pure hypercholesterolemia, unspecified; I95.9 Hypotension, unspecified; K42.9 Umbilical hernia without obstruction or gangrene; R68.0 Hypothermia, not associated with low environmental temperature; G89.29 Other chronic pain; N40.1 Benign prostatic hyperplasia with lower urinary tract symptoms; R33.8 Other retention of urine; G62.9 Polyneuropathy, unspecified; M19.90 Unspecified osteoarthritis, unspecified site; N28.1 Cyst of kidney, acquired; K76.89 Other specified diseases of liver; I08.1 Rheumatic disorders of both mitral and tricuspid valves; N32.89 Other specified disorders of bladder; R06.09 Other forms of dyspnea; K21.9 Gastro-esophageal reflux disease without esophagitis; K76.0 Fatty (change of) liver, not elsewhere classified; M48.00 Spinal stenosis, site unspecified; D63.8 Anemia in other chronic diseases classified elsewhere; F41.9 Anxiety disorder, unspecified; Z87.442 Personal history of urinary calculi; Z85.828 Personal history of other malignant neoplasm of skin; Z87.19 Personal history of other diseases of the digestive system; Z11.52 Encounter for screening for COVID-19
CPT/HCPCS: 70450; 71046; 74177; 80048; 80053; 81003; 82533; 82962; 83605; 83690; 84443; 84484; 85025; 85027; 87040; 87502; 87807; 87811; 92610; 93005; 93306; 96361; 96374; 97116; 97163; 97167; 97530; 99285; Q9967

== ENCOUNTER 2024-06-18 07:46 | Day surgery (SDC) | payer OTHER, SELFPAY ==
[2024-06-09 11:02] VITALS: BMI 28.3
[2024-06-09 11:31] LABS: % Basophils 0.5 % (0-2); % Eosinophils 2.2 % (0-6); % Lymphocytes 38.8 % (20.5-51.1); % Monocytes 12.4 % (1.7-9.3); % Neutrophils 45.1 % (42.2-75.2); Absolute Eosinophils 0.1 10^3/uL (0-0.7); Absolute Immature Granulocytes 0.1 10^3/uL (0-0.05); Absolute Lymphocytes 2.3 10^3/uL (1.2-3.4); Absolute Monocytes 0.7 10^3/uL (0.1-0.6); Absolute Neutrophils 2.6 10^3/uL (1.4-6.5); Hematocrit 34.8 % (39.0-52.0); Hemoglobin 12.5 g/dL (13.0-18.0); Mean Corp Hgb Conc. 35.9 g/dL (33.0-37.0); Mean Corpuscular Hgb 33.4 pg (27.0-31.0); Mean Platelet Volume 11.7 fL (7.4-10.4); Nucleated Red Blood Cells % 0.3 % (-); Platelet Count 180 10^3/uL (130-400); Red Blood Cell Count 3.74 10^6/uL (4.70-6.10); White Blood Cell Count 5.8 10^3/uL (4.8-10.8)
[2024-06-09 11:37] LABS: ALT (SGPT) 34 U/L (0-50); AST (SGOT) 42 U/L (17-59); Albumin 4.8 g/dl (3.5-5.0); Alkaline Phosphatase 65 U/L (38-126); Blood Urea Nitrogen 15 mg/dl (9-20); Calcium 9.7 mg/dl (8.4-10.2); Carbon Dioxide 24 mmol/L (22-30); Chloride 106 mmol/L (98-107); Estimated Creatinine Clearance 64 ml/min; Glucose 113 mg/dl (70-99); Potassium 4.3 mmol/L (3.5-5.1); Sodium 141 mmol/L (135-145); Total Bilirubin 1.6 mg/dl (0.2-1.3); Total Protein 7.3 g/dl (6.3-8.2); eGFR > 60.00
[2024-06-18] VITALS (11 sets, daily range): BP systolic 122–163; BP diastolic 58–75; BMI 28.4
--- NOTE | 2024-06-18 12:16 | ITS.CL.PACE ---
[employer] - Pacemaker Implant
Pacemaker Implant
Procedure Report:
Dual Chamber Pacemaker Placement:
Mr. 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
Indications: Tachy Brian syndrome
Date of the Procedure: 06/18/24
Pre-Operative Diagnosis: Tachy Brian syndrome
Post-Operative Diagnosis: Tachy Brian syndrome
Procedure Performed: DUAL CHAMBER PACEMAKER IMPLANTATION
Performing Physician:
Adam Singh MD
Assistants:
EP staff
Anesthesia:
See anesthesia report
Pre-operative antibiotics:
Ancef
Detailed Description of the Procedure:
The patient was identified using hospital identification and informed consent obtained for the procedure. The risks were explained including, but not limited to: Bleeding, infection, arrhythmia, stroke, vascular/cardiac/lung puncture, surgery,
pacemaker dependency/device malfunction. All questions were answered.
The patient was brought to the electrophysiology laboratory in stable condition in fasting state. Continuous electrocardiographic and hemodynamic monitoring was initiated.
The initial rhythm was sinus bradycardia.
A surgical pause and time out was performed immediately prior to the procedure with review of her medical history, recent labs, allergies and medications with site of procedure identified and consent noted in the chart. Antibiotics pre operatively
given. All team members concurred.
The procedure site was meticulously prepared with surgical scrub and allowed to dry with no pooling. Sterile draping was applied to cover the procedure site. The image intensifier was draped with sterile bag and positioned over the patient.
The left infraclavicular region was prepped and draped in the usual sterile fashion. Local anesthesia was administered subcutaneously using 1% lidocaine / Bupivacaine. The left cephalic vein cutdown was performed with an incision at the
delto-pectoral groove, and vascular sheaths were introduced for lead access. These were advanced into the right ventricle and the right atrium.
There were extreme tortuosity noted in the subclavian vein and long sheaths were needed. The cardiac chambers were rotated as well.
The right ventricular lead was secured in position with an active fixation technique at the apical septal location. The threshold remained elevated and was moved to another septal location with excellent parameters.
The RA lead was attached in the right atrial appendage with active fixation.
There was excellent sensing, pacing, and impedance from the leads, with no diaphragmatic stimulation at 10 V output.�Bovie cautery, antibiotics, and fluoroscopy were used.
The sheaths were withdrawn, and the thresholds remained acceptable. The leads were secured in position at the venous entry site with 0-silk. A pocket was fashioned contiguous to the incision. The electrode terminals were connected to the pulse
generator, which was placed into the pocket. The wound was irrigated thoroughly with antibiotic solution.
The wound was closed in 3 layers using 2-0 V loc then two layers of 4-0 V loc sutures to the dermis. Steri-strips were applied externally and covered with Aquacel bandage.
Procedure End:
The procedure was tolerated well.
Estimated Blood loss:
10 cc
Specimens Removed:
No cultures and no specimens were obtained. No intraoperative pathology was identified.
Fluoro time:
3.1 min / 13.5mGy
Urine output:
None
Packs / Drains/ Tubes:
None
Instrument / Sponge Count Correct:
Yes
Complications of the Procedure:
None
Condition of Patient at Time of Transfer:
Hemodynamically stable with no neurological or vascular compromise.
Device information:�
Generator: RFIDeas; Model: [id number]; Serial # [id number]�
Atrial Lead:
RFIDeas; Model: 5076-52; Serial # [id number]
Measured data in the right atrium was sensing of 1.4 mV, impedance of 560 ohms and threshold of 0.5 V at 0.4ms.
RV Lead:
[employer]; Model: 5076-58; Serial # [id number]
Measured data in the RV lead was sensing of 7.4 mV, impedance of 880 ohms and threshold of 1.0 V at 0.4ms�
Brian parameter settings were AAIR < = > DDDR 60-130 bpm. �
����������� Mode Switch: On
����������� Paced AV interval: 180ms
����������� Sensed AV interval: 150 ms.
����������� Rate Adaptive A-V Interval: Off
Output parameters:
����������������������� Amplitude (V)������������� Pulse Width (ms)������� Sensitivity (mV)
����������� RA: ���� 3.5 ����������������� ����������� 0.4������������������ ����������� 0.3
����������� RV:����� 3.5������������������ ����������� 0.4������������������ ����������� 0.9
Summary:
Successful implantation of MRI compatible dual chamber pacemaker
Results/Recommendations:
-Please follow up CXR�
1. Please provide patient with adequate pain control�
Instructions to be given to patient:�
- Please follow up with [facility] at [address] [place] [address] ([phone]) to get your wound checked within 14 days of your discharge.
- Do not wet incision site until after it is evaluated at cardiology clinic. No soaking or bath until then. Showers or Sponge baths are OK.�Dab dry the area after a shower.
- Do not lift left elbow above shoulder, particularly with sudden jerking movements, for 1 month�
- Do not lift anything weighing more than 10 pounds with the left arm for 1 month�
- If you notice any fevers, shortness of breath, lightheadedness, chest pain, or worsening swelling in the wound site, please contact the arrhythmia clinic, contact your lifeline representatives, or present to the hospital for evaluation.�
Adam Singh MD
Electrophysiology
--- NOTE | 2024-06-18 14:16 | W.PN.UPDATE ---
Update Note
Progress Note Update
84 yo WM s/p DC PPM (same day). He feels good, no cp, sob, micheline diet, site with Aquacel small area drainage marked, EKG SR with appropriate Apacing, CXR no PTX, leads in position. Activity restrictions reviewed. He will have inc check in 1 week. He
is for d/c home after 4pm and receives another dose of Ancef IV>
Mr. 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
Indications: Tachy Brian syndrome
06/18/24
Procedure Performed: DUAL CHAMBER PACEMAKER IMPLANTATION
[2024-06-18] MEDS: ANCEF 5 IV (15:43)
== END 2024-06-18 16:05 | disposition home or self-care (01) ==
LOC: CATH 07:46
PROVIDERS: ATTENDING PHYSICIAN Internal Medicine Cardiovascular Disease; FAMILY PHYSICIAN Family Medicine; OTHER PHYSICIAN Internal Medicine Cardiovascular Disease
DX: I49.5 Sick sinus syndrome (principal); I10 Essential (primary) hypertension; N40.0 Benign prostatic hyperplasia without lower urinary tract symptoms; M19.90 Unspecified osteoarthritis, unspecified site; E78.5 Hyperlipidemia, unspecified; Z86.73 Personal history of transient ischemic attack (TIA), and cerebral infarction without residual deficits; G62.9 Polyneuropathy, unspecified; Z79.899 Other long term (current) drug therapy; I47.10 Supraventricular tachycardia, unspecified; Z90.49 Acquired absence of other specified parts of digestive tract; I07.1 Rheumatic tricuspid insufficiency
CPT/HCPCS: 33208; 36415; 71045; 80053; 85025; 93005; C1785; C1892; C1898

== ENCOUNTER → 2024-12-10 10:36 | Outpatient (REF) | payer MEDICARE, SELFPAY | LOC: RAD 10:36 | PROVIDERS: ATTENDING PHYSICIAN Physician Assistant Medical; FAMILY PHYSICIAN Family Medicine | DX: Z71.89 Other specified counseling (principal); J06.9 Acute upper respiratory infection, unspecified | CPT/HCPCS: 71046 ==

== ENCOUNTER → 2025-03-02 10:18 | Outpatient (REF) | payer MEDICARE, SELFPAY | LOC: EMG 10:18 | PROVIDERS: ATTENDING PHYSICIAN Family Medicine | DX: G62.9 Polyneuropathy, unspecified (principal); R20.0 Anesthesia of skin | CPT/HCPCS: 95886; 95911 ==